=== PATIENT | female | born 1965 | race Caucasian/White ===

== ENCOUNTER → 2016-11-14 | Outpatient (CLI) | payer BC | LOC: RAD 18:11 | DX: M79.642 Pain in left hand (principal); S62.633A Displaced fracture of distal phalanx of left middle finger, initial encounter for closed fracture; S62.635A Displaced fracture of distal phalanx of left ring finger, initial encounter for closed fracture; W19.XXXA Unspecified fall, initial encounter ==

== ENCOUNTER → 2016-12-17 | Outpatient (CLI) | payer BC | LOC: RAD 08:07 | DX: Z09 Encounter for follow-up examination after completed treatment for conditions other than malignant neoplasm (principal); S62.635D Displaced fracture of distal phalanx of left ring finger, subsequent encounter for fracture with routine healing; S62.633D Displaced fracture of distal phalanx of left middle finger, subsequent encounter for fracture with routine healing ==

== ENCOUNTER → 2020-04-06 | Outpatient (CLI) | payer BC ==
[2020-04-06 19:24] LABS: EOS # 0.4 (0.04-0.40); EOS % 6.6 % (1.0-5.0); HEMOGLOBIN 12.7 g/dL (12.5-16.0); LYMPH# 1.7 (1.50-4.00); MEAN CELL VOLUME 86 fl (78-100); MEAN CORPUSCULAR HEMOGLOBIN 28 pg (27-31); MEAN CORPUSCULAR HGB CONC 33 g/dL (33-37); MEAN PLATELET VOLUME 11.6 fl (7.4-10.4); MONO # 0.5 (0.20-0.80); PLATELET COUNT 241 K/mm3 (130-400); RED BLOOD COUNT 4.55 M/mm3 (4.10-5.30); RED CELL DISTRIBUTION WIDTH 13.9 % (11.5-14.5); WHITE BLOOD COUNT 5.6 K/mm3 (4.8-10.8)
[2020-04-06 19:26] LABS: ALBUMIN 4.2 g/dL (3.5-5.0); POTASSIUM 3.6 mmol/L (3.5-5.1)
[2020-04-06 19:27] LABS: CALCIUM 9.6 mg/dL (8.3-10.5)
[2020-04-06 19:30] LABS: TOTAL BILIRUBIN 0.2 mg/dL (0.2-1.2)
== END ==
LOC: LAB 17:29
PROVIDERS: Family Medicine
DX: Z00.00 Encounter for general adult medical examination without abnormal findings (principal); E78.5 Hyperlipidemia, unspecified; R73.9 Hyperglycemia, unspecified

== ENCOUNTER → 2020-09-25 | Outpatient (CLI) | payer BC | LOC: MAMMO 13:34 | DX: Z12.31 Encounter for screening mammogram for malignant neoplasm of breast (principal) ==

== ENCOUNTER → 2020-10-30 | Outpatient (CLI) | payer BC | LOC: LAB 07:16 | DX: U07.1 COVID-19 (principal) ==

== ENCOUNTER 2020-11-08 12:09 | Emergency (ER) | payer BC ==
[~2020-11-08] VITALS: Ht 180.3 cm; Wt 87.7 kg
[2020-11-08 12:40] LABS: BASO # 0.1 (0.02-0.10); EOS # 0.3 (0.04-0.40); EOS % 5.2 % (1.0-5.0); HEMATOCRIT 38.8 % (37.0-47.0); HEMOGLOBIN 12.7 g/dL (12.5-16.0); LYMPH# 1.2 (1.50-4.00); MEAN CELL VOLUME 85 fl (78-100); MEAN CORPUSCULAR HEMOGLOBIN 28 pg (27-31); MEAN CORPUSCULAR HGB CONC 33 g/dL (33-37); MEAN PLATELET VOLUME 10.8 fl (7.4-10.4); MONO # 0.5 (0.20-0.80); NEU # 2.9 (1.40-6.50); PLATELET COUNT 329 K/mm3 (130-400); RED BLOOD COUNT 4.59 M/mm3 (4.10-5.30); RED CELL DISTRIBUTION WIDTH 12.7 % (11.5-14.5)
[2020-11-08 12:54] LABS: POTASSIUM 3.9 mmol/L (3.5-5.1); SODIUM 142 mmol/L (136-145)
[2020-11-08 12:55] LABS: CALCIUM 9.4 mg/dL (8.3-10.5)
[2020-11-08 12:56] LABS: GLUCOSE 84 mg/dL (65-105); TOTAL PROTEIN 7.1 g/dL (6.4-8.3)
[2020-11-08 12:58] LABS: CARBON DIOXIDE 23 mmol/L (22-29); D-DIMER 1.04 mg/L FEU (0.15-0.50); TOTAL BILIRUBIN 0.2 mg/dL (0.2-1.2)
[2020-11-08 13:02] LABS: AST-SGOT 16 U/L (5-34)
[2020-11-08 13:03] LABS: ALT/SGPT 12 U/L (0-55)
[2020-11-08 13:14] LABS: TROPONIN-I < 0.03 ng/mL (<0.030)
[2020-11-08] MEDS ORDERED: VITAMIN C PUR1000 MG PO (14:52)
[2020-11-08] MEDS ORDERED: ZINC50 M4 PO (14:52)
[2020-11-08] MEDS ORDERED: VITAMIN D325 MCG PO (14:52)
[2020-11-08 15:49] VITALS: BP 168/91
== END 2020-11-08 15:55 | disposition home or self-care (01) ==
LOC: ED 12:09
PROVIDERS: Nurse Practitioner Family
DX: U07.1 COVID-19 (principal); J18.9 Pneumonia, unspecified organism; I10 Essential (primary) hypertension; F41.9 Anxiety disorder, unspecified
CPT/HCPCS: J7030; Q9967

== ENCOUNTER 2020-11-22 15:22 | Emergency (ER) | payer BC ==
[~2020-11-22] VITALS: Ht 177.8 cm; Wt 90.0 kg
[~2020-11-22 15:22] MED LIST: VITAMIN C PUR1000 MG PO; VITAMIN D325 MCG PO; ZINC50 M4 PO
[2020-11-22] MEDS ORDERED: PREDNISONE20 M1 PO (15:53)
[2020-11-22] MEDS ORDERED: PROAIR HFA0.09 MG/AC IH (15:53)
[2020-11-22 16:13] LABS: HEMATOCRIT 39.3 % (37.0-47.0); HEMOGLOBIN 12.9 g/dL (12.5-16.0); MEAN CELL VOLUME 84 fl (78-100); MEAN CORPUSCULAR HEMOGLOBIN 28 pg (27-31); MEAN CORPUSCULAR HGB CONC 33 g/dL (33-37); MEAN PLATELET VOLUME 10.6 fl (7.4-10.4); PLATELET COUNT 246 K/mm3 (130-400); RED BLOOD COUNT 4.66 M/mm3 (4.10-5.30); RED CELL DISTRIBUTION WIDTH 13.9 % (11.5-14.5); WHITE BLOOD COUNT 7.8 K/mm3 (4.8-10.8)
[2020-11-22 16:20] LABS: ALBUMIN 4.1 g/dL (3.5-5.0)
[2020-11-22 16:21] LABS: POTASSIUM 3.9 mmol/L (3.5-5.1); SODIUM 143 mmol/L (136-145)
[2020-11-22 16:22] LABS: CALCIUM 9.2 mg/dL (8.3-10.5)
[2020-11-22 16:23] LABS: GLUCOSE 120 mg/dL (65-105); TOTAL PROTEIN 6.8 g/dL (6.4-8.3)
[2020-11-22 16:24] LABS: CARBON DIOXIDE 22 mmol/L (22-29)
[2020-11-22 16:25] LABS: TOTAL BILIRUBIN 0.2 mg/dL (0.2-1.2)
[2020-11-22 16:28] LABS: AST-SGOT 73 U/L (5-34)
[2020-11-22 16:29] LABS: ALT/SGPT 157 U/L (0-55)
[2020-11-22 16:41] LABS: TROPONIN-I < 0.03 ng/mL (<0.030)
[2020-11-22 16:44] LABS: LYMPHOCYTE 8 % (20-51); MONOCYTE 2 % (3-10); NEUTROPHILS 90 % (42-75)
[2020-11-22 16:45] LABS: D-DIMER 1.28 mg/L FEU (0.15-0.50)
[2020-11-22 17:22] LABS: ERYTHROCYTE SEDIMENTATION RATE 19 mm/hr (0-30)
[2020-11-22 18:55] LABS: URINE APPEARANCE CLEAR; URINE BILIRUBIN NEGATIVE (NEGATIVE); URINE BLOOD NEGATIVE (NEGATIVE); URINE COLOR YELLOW; URINE GLUCOSE NEGATIVE (NEGATIVE); URINE KETONE NEGATIVE (NEGATIVE); URINE LEUKOCYTE ESTERASE NEGATIVE (NEGATIVE); URINE NITRATE NEGATIVE (NEGATIVE); URINE PROTEIN(semi-quant) NEGATIVE (NEGATIVE); URINE UROBILINOGEN NORMAL (NORMAL)
[2020-11-22 20:00] VITALS: BP 171/93
[2020-11-23 17:37] LABS: T3 FREE 1.6 pg/mL (1.7-3.7)
== END 2020-11-22 20:14 | disposition home or self-care (01) ==
LOC: ED 15:22
PROVIDERS: Nurse Practitioner Family
DX: R06.02 Shortness of breath (principal); F41.9 Anxiety disorder, unspecified; R53.81 Other malaise; R03.0 Elevated blood-pressure reading, without diagnosis of hypertension; R94.6 Abnormal results of thyroid function studies; Z87.891 Personal history of nicotine dependence; Z79.52 Long term (current) use of systemic steroids; Z86.16 Personal history of COVID-19
CPT/HCPCS: J7030; Q9967

== ENCOUNTER → 2020-12-04 | Outpatient (CLI) | payer BC ==
[2020-11-22 20:00] VITALS: BP 171/93
[~2020-12-04] MED LIST changes: +PREDNISONE20 M1 PO; +PROAIR HFA0.09 MG/AC IH
[2020-12-04 15:56] LABS: ALBUMIN 4.1 g/dL (3.5-5.0); POTASSIUM 4.6 mmol/L (3.5-5.1)
[2020-12-04 15:57] LABS: CALCIUM 9.2 mg/dL (8.3-10.5)
[2020-12-04 15:58] LABS: TOTAL PROTEIN 7.1 g/dL (6.4-8.3)
[2020-12-04 16:00] LABS: TOTAL BILIRUBIN 0.3 mg/dL (0.2-1.2)
[2020-12-04 22:42] LABS: FOLATE (FOLIC ACID) 14.8 ng/mL (7.0-31.4)
== END ==
LOC: LAB 13:46
PROVIDERS: Family Medicine
DX: R74.01 Elevation of levels of liver transaminase levels (principal); E03.9 Hypothyroidism, unspecified; G64 Other disorders of peripheral nervous system

== ENCOUNTER → 2020-12-06 | Outpatient (CLI) | payer BC ==
[2020-11-22 20:00] VITALS: BP 171/93
== END ==
LOC: VAS 09:34
DX: G64 Other disorders of peripheral nervous system (principal)

== ENCOUNTER → 2020-12-12 | Outpatient (CLI) | payer BC ==
[2020-11-22 20:00] VITALS: BP 171/93
[2020-12-13 02:09] LABS: SYPHILIS AB SCREEN w REFLEX Negative (Negative)
[2020-12-13 11:24] LABS: ANA SCREEN with REFLEX Negative (Negative)
[2020-12-13 12:51] LABS: LYME DISEASE EIA Negative (Negative)
== END ==
LOC: LAB 11:05
PROVIDERS: Psychiatry & Neurology Neurology
DX: G62.9 Polyneuropathy, unspecified (principal)

== ENCOUNTER → 2020-12-13 | Outpatient (CLI) | payer BC ==
[2020-11-22 20:00] VITALS: BP 171/93
== END ==
LOC: RAD 17:30
DX: M47.812 Spondylosis without myelopathy or radiculopathy, cervical region (principal); Z86.16 Personal history of COVID-19
CPT/HCPCS: A9585

== ENCOUNTER → 2020-12-24 | Outpatient (CLI) | payer BC | LOC: VAS 16:25 → RAD 16:30 | DX: R07.9 Chest pain, unspecified (principal) ==

== ENCOUNTER → 2021-01-09 | Outpatient (CLI) | payer BC | LOC: LAB 17:11 | DX: M06.9 Rheumatoid arthritis, unspecified (principal); Z79.899 Other long term (current) drug therapy ==

== ENCOUNTER → 2021-03-29 | Outpatient (CLI) | payer BC ==
[2021-03-29 17:31] LABS: BASO # 0.05 (0.02-0.10); EOS # 0.35 (0.04-0.40); EOS % 6.9 % (1.0-5.0); HEMATOCRIT 39.4 % (37.0-47.0); HEMOGLOBIN 13.3 g/dL (12.5-16.0); LYMPH# 1.51 (1.50-4.00); MEAN CELL VOLUME 85 fl (78-100); MEAN CORPUSCULAR HEMOGLOBIN 29 pg (27-31); MEAN CORPUSCULAR HGB CONC 34 g/dL (33-37); MEAN PLATELET VOLUME 10.6 fl (7.4-10.4); MONO # 0.46 (0.20-0.80); NEU # 2.72 (1.40-6.50); PLATELET COUNT 249 K/mm3 (130-400); RED BLOOD COUNT 4.62 M/mm3 (4.10-5.30); RED CELL DISTRIBUTION WIDTH 12.7 % (11.5-14.5); WHITE BLOOD COUNT 5.1 K/mm3 (4.8-10.8)
[2021-03-29 17:34] LABS: POTASSIUM 3.6 mmol/L (3.5-5.1)
[2021-03-29 17:35] LABS: ALBUMIN 4.2 g/dL (3.5-5.0)
[2021-03-29 17:36] LABS: CALCIUM 9.3 mg/dL (8.3-10.5)
[2021-03-29 17:37] LABS: TOTAL PROTEIN 7.1 g/dL (6.4-8.3)
[2021-03-29 17:39] LABS: TOTAL BILIRUBIN 0.3 mg/dL (0.2-1.2)
== END ==
LOC: LAB 17:02
PROVIDERS: Family Medicine
DX: Z00.00 Encounter for general adult medical examination without abnormal findings (principal); Z13.220 Encounter for screening for lipoid disorders; E78.5 Hyperlipidemia, unspecified; E03.9 Hypothyroidism, unspecified; E55.9 Vitamin D deficiency, unspecified

== ENCOUNTER → 2021-07-16 | Outpatient (CLI) | payer BC ==
[2021-07-17 18:27] LABS: IMMUNOGLOBULIN E, TOTAL 124 IU/mL (0-100)
[2021-07-19 08:20] LABS: ALTERNARIA TENUIS CNT <0.10 kU/L (()); ASPERGILLUS FUMIGATUS AL COUNT <0.10 kU/L (()); BERMUDA GRASS ALLERGEN COUNT <0.10 kU/L (()); CLADOSPORIUM ALLERGEN COUNT <0.10 kU/L (()); COCKROACH ALLERGEN COUNT 0.18 kU/L (()); COTTONWOOD TREE ALLERGEN COUNT <0.10 kU/L (()); DOG DANDER ALLERGEN COUNT <0.10 kU/L (()); DUST MITES (D.F.) ALLERG COUNT 0.34 kU/L (()); DUST MITES (D.P.) ALLERG COUNT 0.35 kU/L (()); FIREBUSH ALLERGEN COUNT <0.10 kU/L (()); ROUGH MARSH ELDER ALLERG COUNT <0.10 kU/L (()); RUSSIAN THISTLE ALLERGEN COUNT <0.10 kU/L (()); SHORT RAGWEED ALLERGEN COUNT <0.10 kU/L (())
[2021-07-20 06:18] LABS: BOX ELDER-MAPLE ALLERGEN COUNT <0.10 kU/L (()); CAT DANDER ALLERGEN COUNT <0.10 kU/L (())
[2021-07-20 06:19] LABS: ELM TREE ALLERGEN COUNT <0.10 kU/L (()); OAK ALLERGEN COUNT <0.10 kU/L (())
== END ==
LOC: LAB 16:59
PROVIDERS: Internal Medicine Pulmonary Disease
DX: J32.9 Chronic sinusitis, unspecified (principal); R06.02 Shortness of breath

== ENCOUNTER → 2022-01-20 | Outpatient (CLI) | payer BC ==
[2022-01-20 11:37] LABS: BASO # 0.07 K/mm3 (0.02-0.10); EOS # 0.51 K/mm3 (0.04-0.40); EOS % 5.1 % (1.0-5.0); HEMATOCRIT 41.7 % (37.0-47.0); HEMOGLOBIN 13.4 g/dL (12.5-16.0); LYMPH# 1.34 K/mm3 (1.50-4.00); MEAN CELL VOLUME 88 fl (78-100); MEAN CORPUSCULAR HEMOGLOBIN 28 pg (27-31); MEAN CORPUSCULAR HGB CONC 32 g/dL (33-37); MEAN PLATELET VOLUME 10.4 fl (7.4-10.4); MONO # 0.78 K/mm3 (0.20-0.80); NEU # 7.25 K/mm3 (1.40-6.50); PLATELET COUNT 241 K/mm3 (130-400); RED BLOOD COUNT 4.73 M/mm3 (4.10-5.30); RED CELL DISTRIBUTION WIDTH 13.2 % (11.5-14.5)
[2022-01-20 12:29] LABS: D-DIMER 0.76 mg/L FEU (0.15-0.50)
[2022-01-20 12:49] LABS: ALBUMIN 4.2 g/dL (3.5-5.0); POTASSIUM 4.2 mmol/L (3.5-5.1)
[2022-01-20 12:50] LABS: CALCIUM 10.3 mg/dL (8.3-10.5)
[2022-01-20 12:51] LABS: TOTAL PROTEIN 7.6 g/dL (6.4-8.3)
[2022-01-20 12:53] LABS: TOTAL BILIRUBIN 0.4 mg/dL (0.2-1.2)
[2022-01-20 13:15] LABS: ERYTHROCYTE SEDIMENTATION RATE 42 mm/hr (0-30)
== END ==
LOC: LAB 10:56
PROVIDERS: Nurse Practitioner Family
DX: R06.09 Other forms of dyspnea (principal); R05.9 Cough, unspecified; R07.89 Other chest pain; R79.1 Abnormal coagulation profile; Z20.822 Contact with and (suspected) exposure to COVID-19
CPT/HCPCS: Q9967

== ENCOUNTER → 2022-04-11 | Outpatient (CLI) | payer BC ==
[2022-04-11 17:44] LABS: BASO # 0.06 K/mm3 (0.02-0.10); EOS # 0.35 K/mm3 (0.04-0.40); EOS % 6.4 % (1.0-5.0); HEMATOCRIT 39.7 % (37.0-47.0); HEMOGLOBIN 12.9 g/dL (12.5-16.0); LYMPH# 1.68 K/mm3 (1.50-4.00); MEAN CELL VOLUME 87 fl (78-100); MEAN CORPUSCULAR HEMOGLOBIN 28 pg (27-31); MEAN CORPUSCULAR HGB CONC 33 g/dL (33-37); MEAN PLATELET VOLUME 10.3 fl (7.4-10.4); MONO # 0.53 K/mm3 (0.20-0.80); PLATELET COUNT 254 K/mm3 (130-400); RED BLOOD COUNT 4.59 M/mm3 (4.10-5.30); WHITE BLOOD COUNT 5.4 K/mm3 (4.8-10.8)
[2022-04-11 17:58] LABS: POTASSIUM 3.4 mmol/L (3.5-5.1)
[2022-04-11 17:59] LABS: ALBUMIN 4.2 g/dL (3.5-5.0)
[2022-04-11 18:00] LABS: CALCIUM 9.6 mg/dL (8.3-10.5)
[2022-04-11 18:01] LABS: TOTAL PROTEIN 7.2 g/dL (6.4-8.3)
[2022-04-11 18:03] LABS: TOTAL BILIRUBIN 0.2 mg/dL (0.2-1.2)
== END ==
LOC: LAB 17:25
PROVIDERS: Family Medicine
DX: Z00.00 Encounter for general adult medical examination without abnormal findings (principal); Z12.39 Encounter for other screening for malignant neoplasm of breast; E78.5 Hyperlipidemia, unspecified; J30.9 Allergic rhinitis, unspecified; M51.36 Other intervertebral disc degeneration, lumbar region; F32.9 Major depressive disorder, single episode, unspecified; K21.9 Gastro-esophageal reflux disease without esophagitis; G43.909 Migraine, unspecified, not intractable, without status migrainosus; L40.9 Psoriasis, unspecified; M06.9 Rheumatoid arthritis, unspecified; D25.9 Leiomyoma of uterus, unspecified; D64.9 Anemia, unspecified; D22.9 Melanocytic nevi, unspecified; R49.0 Dysphonia

== ENCOUNTER → 2022-08-27 | Outpatient (CLI) | payer BC | LOC: MAMMO 14:28 | DX: Z12.31 Encounter for screening mammogram for malignant neoplasm of breast (principal) ==

== ENCOUNTER → 2022-08-29 | Outpatient (CLI) | payer BC | LOC: LAB 09:42 | DX: Z00.00 Encounter for general adult medical examination without abnormal findings (principal); E78.5 Hyperlipidemia, unspecified; J30.9 Allergic rhinitis, unspecified; M51.36 Other intervertebral disc degeneration, lumbar region; F32.9 Major depressive disorder, single episode, unspecified; K21.9 Gastro-esophageal reflux disease without esophagitis; G43.909 Migraine, unspecified, not intractable, without status migrainosus; L40.9 Psoriasis, unspecified; M06.9 Rheumatoid arthritis, unspecified; D25.9 Leiomyoma of uterus, unspecified; D64.9 Anemia, unspecified ==

== ENCOUNTER → 2023-08-06 | Outpatient (CLI) | payer OTHER | LOC: AMSURD 09:39 | DX: R06.09 Other forms of dyspnea (principal) ==

== ENCOUNTER → 2023-08-15 | Outpatient (CLI) | payer OTHER ==
[2023-08-17 21:42] LABS: ANA SCREEN with REFLEX Positive (Negative)
== END ==
LOC: LAB 09:26
PROVIDERS: Nurse Practitioner
DX: R06.09 Other forms of dyspnea (principal); M25.50 Pain in unspecified joint

== ENCOUNTER → 2024-05-17 | Outpatient (CLI) | payer OTHER ==
[2024-05-17 14:10] LABS: BASO # 0.03 K/mm3 (0.02-0.10); EOS % 3.7 % (1.0-5.0); HEMATOCRIT 38.9 % (37.0-47.0); HEMOGLOBIN 12.7 g/dL (12.5-16.0); LYMPH# 1.31 K/mm3 (1.50-4.00); MEAN CELL VOLUME 87 fl (78-100); MEAN CORPUSCULAR HEMOGLOBIN 28 pg (27-31); MEAN CORPUSCULAR HGB CONC 33 g/dL (33-37); MEAN PLATELET VOLUME 9.9 fl (7.4-10.4); MONO # 0.52 K/mm3 (0.20-0.80); NEU # 3.34 K/mm3 (1.40-6.50); PLATELET COUNT 227 K/mm3 (130-400); RED BLOOD COUNT 4.48 M/mm3 (4.10-5.30); RED CELL DISTRIBUTION WIDTH 13.1 % (11.5-14.5); WHITE BLOOD COUNT 5.4 K/mm3 (4.8-10.8)
[2024-05-17 14:13] LABS: ALBUMIN 4.3 g/dL (3.4-4.8)
[2024-05-17 14:14] LABS: CALCIUM 9.9 mg/dL (8.3-10.5)
[2024-05-17 14:15] LABS: TOTAL PROTEIN 6.9 g/dL (6.2-8.1)
[2024-05-17 14:17] LABS: TOTAL BILIRUBIN 0.4 mg/dL (0.2-1.2)
[2024-05-20 14:12] LABS: VITAMIN B1 97.5 nmol/L (())
== END ==
LOC: LAB 13:53
PROVIDERS: Family Medicine
DX: E78.5 Hyperlipidemia, unspecified (principal); E56.9 Vitamin deficiency, unspecified; I10 Essential (primary) hypertension

== ENCOUNTER → 2024-09-27 | Outpatient (CLI) | payer OTHER | LOC: MAMMO 13:05 | DX: Z12.31 Encounter for screening mammogram for malignant neoplasm of breast (principal); M47.812 Spondylosis without myelopathy or radiculopathy, cervical region; E04.2 Nontoxic multinodular goiter ==

== ENCOUNTER → 2024-11-26 | Outpatient (CLI) | payer OTHER ==
[2024-11-26 20:32] LABS: MYOGLOBIN - SEND OUT 395 ng/mL (0-106)
== END ==
LOC: LAB 12:15
PROVIDERS: Nurse Practitioner
DX: M62.81 Muscle weakness (generalized) (principal)

== ENCOUNTER → 2025-01-13 | Outpatient (CLI) | payer OTHER ==
[2025-01-13 07:45] LABS: BASO # 0.04 K/mm3 (0.02-0.10); EOS # 0.24 K/mm3 (0.04-0.40); EOS % 6.5 % (1.0-5.0); HEMATOCRIT 39.1 % (37.0-47.0); HEMOGLOBIN 12.7 g/dL (12.5-16.0); MEAN CELL VOLUME 85 fl (78-100); MEAN CORPUSCULAR HEMOGLOBIN 28 pg (27-31); MEAN CORPUSCULAR HGB CONC 33 g/dL (33-37); MEAN PLATELET VOLUME 10.1 fl (7.4-10.4); MONO # 0.34 K/mm3 (0.20-0.80); NEU # 1.79 K/mm3 (1.40-6.50); PLATELET COUNT 227 K/mm3 (130-400); RED BLOOD COUNT 4.61 M/mm3 (4.10-5.30); RED CELL DISTRIBUTION WIDTH 14.2 % (11.5-14.5); WHITE BLOOD COUNT 3.7 K/mm3 (4.8-10.8)
[2025-01-13 07:57] LABS: ALBUMIN 4.1 g/dL (3.4-4.8)
[2025-01-13 07:59] LABS: CALCIUM 10.1 mg/dL (8.3-10.5)
[2025-01-13 08:00] LABS: TOTAL PROTEIN 7.1 g/dL (6.2-8.1)
[2025-01-13 08:02] LABS: TOTAL BILIRUBIN 0.3 mg/dL (0.2-1.2)
[2025-01-13 18:30] LABS: T3 TOTAL 106 ng/dL (35-193)
[2025-01-13 19:12] LABS: T3 FREE 2.7 pg/mL (1.7-3.7)
== END ==
LOC: LAB 07:24
PROVIDERS: Nurse Practitioner
DX: R53.83 Other fatigue (principal); E55.9 Vitamin D deficiency, unspecified; U09.9 Post COVID-19 condition, unspecified